=== PATIENT | female | born 1980 | race Caucasian/White ===

== ENCOUNTER 2023-07-02 11:24 | Emergency (ER) | payer OTHER, SELFPAY ==
[2023-07-02 11:26] VITALS: BP 118/86; PULSE 102; RESP 18; TEMP 35.9; O2SAT 99; BMI 24.5
--- NOTE | 2023-07-02 11:34 | ED.VIS.FEGU ---
HPI HPI - Female History of Present Illness Chief Complaint: Vag Bleeding PFSH PFSH Medical History (Updated 07/02/23 @ 11:51 by Columba Keller) Tubal ligation evaluation Medical History no medical history Home Medications NK 07/02/23 [History Last Taken Unknown] Allergy/AdvReac Type Severity Reaction Status Date / Time No Known Allergies Allergy Verified 07/02/23 11:26 Social History Smoking Status: Never smoker EXAM Physical Exam Const Vital Signs: 07/02/23 11:26 Temperature 96.7 F L Temperature Source Temporal Pulse Rate 102 H Respiratory Rate 18 Blood Pressure 118/86 H Blood Pressure Mean 96 Pulse Ox 99 Oxygen Delivery Method Room Air MDM MDM MDM Narrative Medical decision making narrative: HISTORY OF PRESENT ILLNESS: 43-year-old female here with heavy vaginal bleeding. States she notes a little bit of lightheadedness associated with this. States her last period was approximate 3 weeks ago. States she has occasional changes to her period frequency. She notes she has a tubal ligation and does not think she is . Denies any passage of any tissue. Denies any chest pain or shortness of breath. Denies current use of anticoagulation. REVIEW OF SYSTEMS: Pertinent positives: Vaginal bleeding Pertinent negatives: Abdominal pain PHYSICAL EXAM: Nursing triage notes reviewed, Vital signs reviewed Constitutional: please see mdm HENT: MMM Eyes: Pupils equal round and reactive to light, Extraocular muscles intact Neck: No stridor, no JVD, full neck ROM Lungs: Clear to auscultation, No wheezing or rales. No increased work of breathing, no conversational dyspnea, no accessory muscle use, no nasal flaring. No respiratory distress noted Heart: Regular rate and rhythm, No murmurs, No rubs and No gallops, 2+ distal pulses (radial, femoral, posterior tibial) in all extremities Abdomen: Soft, there is no tenderness, rigidity, rebound or guarding, no obvious peritoneal signs, no palpable pulsatile abdominal masses, no auscultated abdominal bruit : No CVAT, pelvic exam deferred by patient Extremities: No edema Neuro: No focal neurological deficits, cranial nerves II through XII intact, 5/5 strength in all extremities. Intact sensation to light touch in all extremities, 2+ reflexes bilateral patella tendons. Normal gait. No ataxia. Skin: No rash or lesions noted MEDICAL DECISION MAKING: Chief Complaint: Vaginal bleeding External records reviewed: No prior hemoglobin level noted Factors affecting care: none History obtained from others: The patient's Consults: none ALL IMAGES (IF OBTAINED) HAVE BEEN PERSONALLY REVIEWED AND INTERPRETED BY MYSELF. MDM Narrative: Patient was hemodynamically stable, afebrile, nontoxic-appearing. Abdominal exam was benign. Pelvic exam was deferred by the patient. I considered the following differential diagnosis: , ectopic , severe anemia, abnormal uterine bleeding CBC without significant anemia. She is not . No indication for transfusion or further intervention at this time. Gave the patient strict return precautions and follow-up instructions with [employer]. The patient and/or family, caregivers express understanding. The patient and/or family, caregivers agrees with the plan. Shared decision making: I will have a discussion with the patient and or visitors regarding risk/benefits of further testing or admission. They will be made aware of of the risk/benefits inherent in this decision they will be given the opportunity to voice understanding. Total critical care time today provided was at least 0 minutes. This excludes separately billable procedures. Critical care time (if documented) is secondary to the patient having high probability of clinically significant/life threatening deterioration in the patient's condition which required my urgent intervention. Impression: 1. Abnormal uterine bleeding 2. Anemia Dispo: Discharge Lab Data Labs: Laboratory Results - last 24 hr 07/02/23 07/02/23 11:56 12:05 WBC 5.4 RBC 4.58 Hgb 11.0 L Hct 35.6 L MCV 77.7 L MCH 24.0 L MCHC 30.9 L RDW Std Deviation 46.5 H RDW Coeff of [place] 16.5 H Plt Count 226 MPV 10.0 Immature Gran % (Auto) 0.400 Neut % (Auto) 58.5 Lymph % (Auto) 25.7 [place] % (Auto) 10.8 H Eos % (Auto) 3.9 Baso % (Auto) 0.7 Absolute Neuts (auto) 3.1 Absolute Lymphs (auto) 1.38 Nucleated RBC % 0 Urine Test Negative Discharge Plan Triage Chief Complaint: Vag Bleeding ED Provider: Carlos Silverman Dx/Rx/DC Orders Instructions: ED Dysfunctional Uterine Bleeding Prescriptions: No Action NK Primary Care Provider: Care Physician,No Primary Referrals: Claudia Her MD [Med Staff - Active Staff] - Activity Restrictions/Additional Instructions: Thank you for trusting us with your care today! Please take Tylenol (2 pills, 650 mg), ibuprofen (2 pills, 400 mg) every 6 hours as needed for pain and fever control. Please return to the emergency department if your symptoms change or worsen. Specifically if your bleeding worsens to the level of soaking through 1 pad per hour. If you develop loss of consciousness. Develop chest pain shortness of breath or palpitations. Please follow with your primary care physician for further outpatient evaluation and management. Disposition Disposition: Home, Self Care
[2023-07-02 12:11] LABS: Absolute Lymphocyte Count 1.38 X10^3/uL (0.83-4.51); Absolute Neutrophil Count 3.1 X10^3/uL (2.0-7.7); Basophil# 0.04 X10^3/uL; Basophil% 0.7 % (0-1); Eosinophil# 0.21 X10^3/uL; Eosinophils% 3.9 % (0-5); Hematocrit 35.6 % (37-47); Lymphocyte # 1.38 X10^3/ul (0.83-4.51); Lymphocyte % 25.7 % (19-41); Mean Corp Hgb Conc 30.9 g/dL (32-36); Mean Corpuscular Volume 77.7 fL (81-99); Monocyte# 0.58 X10^3/uL; Monocyte% 10.8 % (0-10); NRBC Flagged by Analyzer 0 % (0-5); Neutrophil # 3.13 X10^3/uL (2.7-7.7); Neutrophil % 58.5 % (47-70); Platelet Count 226 K/mm3 (150-450); RBC Distribution Width CV 16.5 % (11.6-14.6); RBC Distribution Width SD 46.5 fl (35.1-43.9); Red Blood Count 4.58 M/mm3 (4.2-5.4); White Blood Count 5.4 K/mm3 (4.4-11.0)
[2023-07-02 12:16] LABS: Internal QC Validated? YES +Cl - CLEAR BKGD; Pregnancy, Urine Negative Negative
[2023-07-02 13:24] VITALS: BP 107/71
== END 2023-07-02 13:25 | disposition home or self-care (01) ==
PROVIDERS: Emergency Provider Emergency Medicine; Visit Provider Emergency Medicine
DX: N93.9 Abnormal uterine and vaginal bleeding, unspecified (principal); D64.9 Anemia, unspecified; Z98.51 Tubal ligation status
CPT/HCPCS: 36415; 81025; 85025; 99282